=== PATIENT | female | born 1980 | race Caucasian/White ===

== ENCOUNTER 2017-01-11 19:49 | Emergency (ER) | payer OTHER ==
[2017-01-11 19:54] VITALS: TEMP 98.4; BMI 28.1
--- NOTE | 2017-01-11 20:35 | PDOC ---
History of Present Illness <Danii Evans - Last Filed: 01/11/17 23:55> - General History Source: Patient Exam Limitations: No Limitations - History of Present Illness Initial Comments: 01/11/17 21:28 Patient is a 36 yo female with HTN presenting with 2 days of chest pain and associated parasthesias in the fingers of her left hand. Patient claims the pain is episodic occurring every few minutes and lasting for 30 seconds. The pain is sharp, 10/10, and located in the center of her chest with radiation to the back. Pain is not pleurtic and improves with patient laying on her left side. Patient also endorses night sweats, minimal palpitations and shortness of breath with exertion. Patient denies recent travel, immpobilizations, calf pain and hx of DVTs. No family history of heart problems. 01/11/17 21:30 <[address] - Last Filed: 01/12/17 00:04> - General Chief Complaint: Chest Pain Stated Complaint: PCP SENT/CHEST PAIN Time Seen by Provider: 01/11/17 20:34 Past History <Danii Evans - Last Filed: 01/11/17 23:55> - Past Medical History GI Disorders: Yes (COLITIS /HERNIA) HTN: Yes ("countless meds; nothing works") Thyroid Disease: Yes (cushings disease dx 2009) - Surgical History Abdominal Surgery: No - Immunization History Immunization Up to Date: No - Suicide/Smoking/Psychosocial Hx Smoking Status: No Smoking History: Never smoked Have you smoked in the past 12 months: No Number of Cigarettes Smoked Daily: 0 If you are a former smoker, when did you quit?: 2014 Information on smoking cessation initiated: No 'Breaking Loose' booklet given: 03/18/15 Hx Alcohol Use: No Drug/Substance Use Hx: No Substance Use Type: None Hx Substance Use Treatment: No <Moe Lane - Last Filed: 01/12/17 00:04> - Past Medical History Allergies/Adverse Reactions: Allergies Allergy/AdvReac Type Severity Reaction Status Date / Time moxifloxacin HCl AdvReac Severe Difficulty Verified 01/11/17 19:54 [From Avelox] Breathing seafood Allergy Severe Difficulty Uncoded 01/11/17 19:54 Breathing Home Medications: Ambulatory Orders Ibuprofen [Motrin -] 600 mg PO TID PRN #60 tablet 01/11/17 *Physical Exam - Vital Signs Last Vital Signs Temp Pulse Resp BP Pulse Ox 98.4 F 80 18 186/117 100 01/11/17 19:52 01/11/17 21:26 01/11/17 21:26 01/11/17 21:26 01/11/17 21:26 <Danii Evans - Last Filed: 01/11/17 23:55> - Vital Signs Last Vital Signs Temp Pulse Resp BP Pulse Ox 98.4 F 95 H 18 208/136 97 01/11/17 19:52 01/11/17 19:52 01/11/17 19:52 01/11/17 19:52 01/11/17 19:52 <Moe [address] - Last Filed: 01/12/17 00:04> ED Treatment Course - LABORATORY CBC & Chemistry Diagram: 01/11/17 21:00 01/11/17 21:00 - ADDITIONAL ORDERS Additional order review: Laboratory Results 01/11/17 01/11/17 01/11/17 22:20 21:00 21:00 D-Dimer 213 Sodium 140 Potassium 3.6 Chloride 105 Carbon Dioxide 31 Anion Gap 4 L BUN 8 Creatinine 0.8 Creat Clearance w eGFR > 60 Random Glucose 104 Calcium 8.9 Total Bilirubin 0.2 D AST 14 L ALT 19 Alkaline Phosphatase 82 Creatine Kinase 139 Troponin I 0.05 Total Protein 7.6 Albumin 3.5 Urine HCG, Qual Negative 01/11/17 21:00 RBC 3.99 MCV 87.8 MCHC 33.3 RDW 14.3 D MPV 12.7 H Neutrophils % 65.6 Lymphocytes % 24.7 Monocytes % 8.3 Eosinophils % 1.1 Basophils % 0.3 - RADIOLOGY Radiology Studies Ordered: Category Date Time Status CHEST PA & LAT [RAD] Stat Radiology 01/11/17 20:42 Taken - Medications Given in the ED: ED Medications Discontinued Medications Generic Name Dose Route Start Last Admin Trade Name Freq PRN Reason Stop Dose Admin Al Hydroxide/Mg Hydroxide 30 ml 01/11/17 20:52 01/11/17 21:15 Mylanta Oral Suspension - PO 01/11/17 20:53 30 ml ONCE ONE Administration Aspirin 162 mg 01/11/17 20:52 01/11/17 21:15 Asa - PO 01/11/17 20:53 162 mg ONCE ONE Administration Famotidine/Sodium Chloride 50 mls @ 100 mls/hr 01/11/17 20:52 01/11/17 21:15 Pepcid 20 Mg Premixed Ivpb - IVPB 01/11/17 21:21 100 mls/hr ONCE ONE Administration Ketorolac Tromethamine 30 mg 01/11/17 22:54 01/11/17 22:54 Toradol Injection - IVPUSH 01/11/17 22:55 30 mg NOW ONE Administration <Danii Evans - Last Filed: 01/11/17 23:55> - LABORATORY CBC & Chemistry Diagram: 01/11/17 21:00 01/11/17 21:00 <Moe Lane - Last Filed: 01/12/17 00:04> Medical Decision Making - Medical Decision Making 01/11/17 21:37 36 yo female with atypical chest pain that is reproducible on palpation, minimal risk factors for ACS, low suspision for PE presenting in hypertensive urgency. Ddx: HTN Emergency, ACS, PE, Disection, Pneumo. PNA Evaluate with EKG, CXR, basic labs, cardiac enzymes, D-Dimer 01/11/17 22:51 EKG: NSR, Left axis deviation, no S-T elevation, normal intervals Normal chest x-ray CBC WBC 8.2 K/mm3 (4.0-10.0) 01/11/17 21:00 RBC 3.99 M/mm3 (3.60-5.2) 01/11/17 21:00 Hgb 11.6 GM/dL (10.7-15.3) 01/11/17 21:00 Hct 35.0 % (32.4-45.2) 01/11/17 21:00 MCV 87.8 fl (80-96) 01/11/17 21:00 MCH 29.2 pg (25.7-33.7) 01/11/17 21:00 MCHC 33.3 g/dl (32.0-36.0) 01/11/17 21:00 RDW 14.3 % (11.6-15.6) D 01/11/17 21:00 Plt Count 147 K/MM3 (134-434) D 01/11/17 21:00 MPV 12.7 fl (7.5-11.1) H 01/11/17 21:00 Neutrophils % 65.6 % (42.8-82.8) 01/11/17 21:00 Lymphocytes % 24.7 % (8-40) 01/11/17 21:00 Monocytes % 8.3 % (3.8-10.2) 01/11/17 21:00 Eosinophils % 1.1 % (0-4.5) 01/11/17 21:00 Basophils % 0.3 % (0-2.0) 01/11/17 21:00 Platelet Estimate Decreased (NORMAL) 01/11/17 21:00 Platelet Comment No clumping noted 01/11/17 21:00 Platelet Comment Few large plts 01/11/17 21:00 01/11/17 23:35 CMP Sodium 140 mmol/L (136-145) 01/11/17 21:00 Potassium 3.6 mmol/L (3.5-5.1) 01/11/17 21:00 Chloride 105 mmol/L (98-107) 01/11/17 21:00 Carbon Dioxide 31 mmol/L (21-32) 01/11/17 21:00 Anion Gap 4 (8-16) L 01/11/17 21:00 BUN 8 mg/dL (7-18) 01/11/17 21:00 Creatinine 0.8 mg/dL (0.55-1.02) 01/11/17 21:00 Creat Clearance w eGFR > 60 (>60) 01/11/17 21:00 Random Glucose 104 mg/dL (74-106) 01/11/17 21:00 Calcium 8.9 mg/dL (8.5-10.1) 01/11/17 21:00 Total Bilirubin 0.2 mg/dL (0.2-1.0) D 01/11/17 21:00 AST 14 U/L (15-37) L 01/11/17 21:00 ALT 19 U/L (12-78) 01/11/17 21:00 Alkaline Phosphatase 82 U/L (45-117) 01/11/17 21:00 Creatine Kinase 139 IU/L (26-192) 01/11/17 21:00 Troponin I 0.05 ng/ml (0.00-0.05) 01/11/17 21:00 Total Protein 7.6 g/dl (6.4-8.2) 01/11/17 21:00 Albumin 3.5 g/dl (3.4-5.0) 01/11/17 21:00 CBC, CMP Grossly within normal limits <GaryMoe - Last Filed: 01/12/17 00:04> *DC/Admit/Observation/Transfer <Danii Evans - Last Filed: 01/11/17 23:55> - Discharge Dispostion Admit: No <Moe Lane - Last Filed: 01/12/17 00:04> Diagnosis at time of Disposition: Chest wall pain Hypertension Qualifiers: Hypertension type: unspecified Qualified Code(s): I10 - Essential (primary) hypertension - Discharge Dispostion Disposition: HOME Condition at time of disposition: Improved - Prescriptions Prescriptions: Ibuprofen [Motrin -] 600 mg PO TID PRN #60 tablet PRN Reason: Pain - Referrals Referrals: Radu Mcdonnell MD [Primary Care Provider] - - Patient Instructions Printed Discharge Instructions: DI for Atypical Chest Pain Additional Instructions: You should take protonix 40 mg every day. Follow up with gastroenterology. You should also follow up with Dr. mcdonnell within next 3 days to have your blood pressure checked. All labs were normal here today. Return for any problem or concerns. You can take Motrin 600 mg every 8 hours as needed for pain.
[2017-01-11] MEDS ORDERED: FAMOTIDINE 20 MG/50 ML IVPB 50 ML IVPB ONE ×2 (20:52→21:09)
[2017-01-11] MEDS ORDERED: ASPIRIN 81 MG CHEWABLE TABLETS PO ONE (20:52)
[2017-01-11] MEDS ORDERED: MAG HYDROX/AL HYDROX/SIMETH 30 ML UNIT-DOSE CUP PO ONE (20:52)
--- NOTE | 2017-01-11 20:52 | PDOC ---
Attending Attestation - [facility] HPI: 01/11/17 21:22 The patient is a 36 year old female, with a significant past medical history of hypertension (treated with diet, exercise, and garlic pills), graham's disease , anxiety, hiatal hernia, and colitis, who presents to the emergency department with midsternal chest pain for 3 days. She states the onset of her chest pain occurred Wednesday morning and was associated with left arm numbness. She states the numbness resolved after just a few minutes, however, she states she has been experiencing intermittent chest pain since. She states while experiencing the midsternal pain, the pain is exacerbated with deep inspiration. She also reports tenderness to her midsternal region. She denies pain with deep inspiration when the pain is not present. She reports increased shortness of breath with walking up stairs. She denies lower extremity swelling or pain. She denies recent travels. She reports recently losing 15lbs s/p changing the treatment for her hypertension. She reports a normal stress test 2 years. She denies headache and dizziness. She denies fever, chills, nausea, vomit, diarrhea and constipation. She denies dysuria, frequency, urgency and hematuria. Allergies: NKDA Social history: Pt denies tobacco use. Family History: CVA (mother) PCP - Dr. Radu Mcdonnell - Physicial Exam PE: 01/11/17 21:24 GENERAL: Awake, alert, and fully oriented, in no acute distress HEAD: No signs of trauma EYES: PERRLA, EOMI, sclera anicteric, conjunctiva clear ENT: Auricles normal inspection, hearing grossly normal, nares patent, oropharynx clear without exudates. Moist mucosa NECK: Normal ROM, supple, no lymphadenopathy, JVD, or masses LUNGS: Breath sounds equal, clear to auscultation bilaterally. No wheezes, and no crackles HEART: Regular rate and rhythm, normal S1 and S2, no murmurs, rubs or gallops CHEST: (+) reproducible tenderness to midsternum. ABDOMEN: Soft, nontender, normoactive bowel sounds. No guarding, no rebound. No masses EXTREMITIES: Normal range of motion, no edema. No clubbing or cyanosis. No cords , erythema, or tenderness NEUROLOGICAL: Cranial nerves II through XII grossly intact. Normal speech, normal gait SKIN: Warm, Dry, normal turgor, no rashes or lesions noted. - Medical Decision Making 01/11/17 23:50 Dr. Mcdonnell was paged via phone answering service at this time requesting a call back for doctor to doctor consult. 01/11/17 23:55 Documentation prepared by Beverly Gregory, acting as medical apparatus model maker for Danii Evans MD, <Beverly Gregory - Last Filed: 01/11/17 23:51> - Resident Resident Name: Moe Lane - ED Attending Attestation I have performed the following: I have examined & evaluated the patient, The case was reviewed & discussed with the resident, I agree w/resident's findings & plan, Exceptions are as noted - HPI HPI: 01/11/17 20:48 36 yo F with h/o HTN, recenlty dc'd on all meds, using diet exercise and garlic pills, 15 lb weight loss, here wtih c/o chest pain. started 3 days ago. described as substernal rad to back and arm. did have sob when pain is symptomatic. pain is intermittent. normally not plueritic. no h/o pe or dvt. no leg swelling. no recent travel. family h/o CVA ( mother 40's) no CAD. on exam awake alert lungs clear bilaterally heart rrr no mrg abd soft nt nd leg no edema. symmetric pulses. chest wall ttp. plan differential diagnosis : chest wall pain, gerd, refuls, pe angina ( although unlikely given pt age, recent stress test negative. 2 yrs ago). plan bp control, reasses. pain control. ekg labs cxr. - Physicial Exam PE: 01/11/17 23:53 01/11/17 23:55 - Medical Decision Making 01/11/17 23:55 pt labs unremarkable. d dimer negative. has reproducible pain on exam. ekg unremarkable. bp improved. will have follow up wtih dr mcdonnell in 48 hours. recommend motrin for pain control. <Danii Evans - Last Filed: 01/11/17 23:55>
[2017-01-11] MEDS ORDERED: ASPIRIN 81 MG CHEWABLE TABLETS ONE (21:08)
[2017-01-11 21:09] LABS: BASOPHIL 0.3 % (0-2.0); EOSINOPHIL 1.1 % (0-4.5); MCH 29.2 pg (25.7-33.7); MCHC 33.3 g/dl (32.0-36.0); MEAN CELL VOLUME 87.8 fl (80-96); MEAN PLT VOLUME 12.7 fl (7.5-11.1); NEUTROPHILS 65.6 % (42.8-82.8); RDW 14.3 % (11.6-15.6); WHITE BLOOD COUNT 8.2 K/mm3 (4.0-10.0)
[2017-01-11] MEDS ORDERED: MAG HYDROX/AL HYDROX/SIMETH 30 ML UNIT-DOSE CUP ONE (21:09)
[2017-01-11 21:36] LABS: ALBUMIN 3.5 g/dl (3.4-5.0); ANION GAP 4 (8-16); BILIRUBIN,TOTAL 0.2 mg/dL (0.2-1.0); CALCIUM 8.9 mg/dL (8.5-10.1); CO2 31 mmol/L (21-32); CREATININE 0.8 mg/dL (0.55-1.02); GLUCOSE,RANDOM 104 mg/dL (74-106); SGOT/AST 14 U/L (15-37); SGPT/ALT 19 U/L (12-78); TOT PROT 7.6 g/dl (6.4-8.2)
[2017-01-11 21:38] LABS: ALK PHOS 82 U/L (45-117); CPK 139 IU/L (26-192); TROPONIN I 0.05 ng/ml (0.00-0.05)
[2017-01-11 22:10] LABS: PLATELET COMMENT2 FEW LARGE PLTS; PLATELET COUNT 147 K/MM3 (134-434); PLATELET ESTIMATE DECREASED (NORMAL)
[2017-01-11] MEDS ORDERED: KETOROLAC TROMETHAMINE 30 MG/1 ML VIAL ONE (22:46)
[2017-01-11] MEDS ORDERED: KETOROLAC TROMETHAMINE 30 MG/1 ML VIAL IVPUSH ONE (22:54)
[2017-01-12 00:28] VITALS: BP 159/94; PULSE 69
--- NOTE | 2017-01-13 11:30 | EKG ---
Test Reason : Blood Pressure : / mmHG Vent. Rate : 086 BPM Atrial Rate : 086 BPM P-R Int : 176 ms QRS Dur : 090 ms QT Int : 380 ms P-R-T Axes : 044 -63 091 degrees QTc Int : 454 ms NORMAL SINUS RHYTHM POSSIBLE LEFT ATRIAL ENLARGEMENT LEFT AXIS DEVIATION ABNORMAL QRS-T ANGLE, CONSIDER PRIMARY T WAVE ABNORMALITY ABNORMAL ECG WHEN COMPARED WITH ECG OF 31-JUL-2015 13:07, CRITERIA FOR ANTEROSEPTAL INFARCT ARE NO LONGER PRESENT Confirmed by JED WILD, ZOEY ([id number]) on 01/13/2017 11:29:46 AM Referred By: Confirmed By:ZOEY ADKINS MD
== END 2017-01-12 00:30 | disposition home or self-care (01) ==
LOC: JER 19:49
PROC: 3E033GC Introduction of Other Therapeutic Substance into Peripheral Vein, Percutaneous Approach (ICD-10-PCS; principal; 2017-01-11)
PROC: 3E0333Z Introduction of Anti-inflammatory into Peripheral Vein, Percutaneous Approach (ICD-10-PCS; 2017-01-11)
DX: R07.89 Other chest pain (principal); I10 Essential (primary) hypertension
CPT/HCPCS: 36415; 71020-TC; 80053; 84484; 84703; 85025; 85379; 93005; 93010; 99283-25

== ENCOUNTER 2019-05-05 18:05 | Emergency (ER) | payer OTHER ==
[2019-05-05 18:10] VITALS: TEMP 97.6; BMI 29.2
--- NOTE | 2019-05-05 18:10 | PDOC ---
Rapid Medical Evaluation Time Seen by Provider: 05/05/19 18:07 Medical Evaluation: Allergies Allergy/AdvReac Type Severity Reaction Status Date / Time moxifloxacin HCl AdvReac Severe Difficulty Verified 01/11/17 19:54 [From Avelox] Breathing seafood Allergy Severe Difficulty Uncoded 01/11/17 19:54 Breathing 05/05/19 18:07 HPI: Sent from occupational health at [facility] with questionable pneumonia Finished a course of zithromax and now on cefuroxime PE: CTA ORDERS:CXR Discharge Disposition - Diagnosis Viral URI with cough - Referrals - Patient Instructions - Post Discharge Activity
--- NOTE | 2019-05-05 20:00 | PDOC ---
History of Present Illness - General Chief Complaint: Cold Symptoms Stated Complaint: SENT BY PCP Time Seen by Provider: 05/05/19 18:07 History Source: Patient Exam Limitations: No Limitations - History of Present Illness Initial Comments: 39F PMH uncontrolled HTN, hyperaldosteronism sent in by [facility] due to abnormality heard on pulmonary exam by examiner. Pt has had a dry cough for the past 2 weeks; given z-pack by urgent care w/o improvement, saw PCP given Cefuroxime on 04/28/19. No improvement since. Endorses three days of generalized malaise and myalgias. Endorses 3 days of b/l CVA region pain. Denies f/c, cp/sob, n/v/abd pain, dysuria. Pt has been on disability for anxiety , was being examined for return to work. 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 Did not get flu shot, has upspecified bad rxn. uncontrolled HTN - baseline SBP 180s per pt, has very resistant HTN, has not responded to multiple medications, now not on any anti-HTNs, has seen multiple specialists Allergy to Moxifloxacin PCP Dr. Garza Denies tobacco, etoh, drug Past History - Past Medical History Allergies/Adverse Reactions: Allergies Allergy/AdvReac Type Severity Reaction Status Date / Time moxifloxacin HCl AdvReac Severe Difficulty Verified 05/05/19 18:11 [From Avelox] Breathing seafood Allergy Severe Difficulty Uncoded 05/05/19 18:11 Breathing Home Medications: Ambulatory Orders Ibuprofen [Motrin -] 600 mg PO TID PRN #60 tablet 01/11/17 COPD: No GI Disorders: Yes (COLITIS /HERNIA) HTN: Yes Thyroid Disease: Yes (cushings disease dx 2009) - Surgical History Abdominal Surgery: No - Immunization History Immunization Up to Date: No - Psycho Social/Smoking Cessation Hx Smoking Status: No Smoking History: Never smoked Have you smoked in the past 12 months: No Number of Cigarettes Smoked Daily: 0 If you are a former smoker, when did you quit?: 2014 'Breaking Loose' booklet given: 03/18/15 Hx Alcohol Use: No Drug/Substance Use Hx: No Substance Use Type: None Hx Substance Use Treatment: No Review of Systems - Review of Systems Able to Perform ROS?: Yes Comments:: CONSTITUTIONAL: Denies F / C HEENT: Endorses postnasal drip. Denies sore throat, rhinorrhea RESP: Endorses cough. Denies SOB CARD: Denies chest pain, palpitations GI: Denies N / V / D, abdominal pain, inability to tolerate PO : Denies dysuria, frequency SKIN: Denies rashes NEURO: Denies numbness, tingling, weakness MSK: Endorses b/l CVA region pain Is the patient limited Romanian proficient: No *Physical Exam - Vital Signs Last Vital Signs Temp Pulse Resp BP Pulse Ox 97.6 F 98 H 18 194/130 H 100 05/05/19 18:06 05/05/19 18:06 05/05/19 18:06 05/05/19 18:06 05/05/19 18:06 - Physical Exam VITALS: AF, Hypertensive GEN: Well appearing, NAD, comfortable. AAOx3. HEENT: NC/AT. No facial asymmetry. Moist mucous membranes. Normal voice. Supple neck w/ FROM. CV: S1/S2, RRR, no m/r/g LUNG: CTAB, no wheezes, crackles, rales, rhonchi. GI: Soft, ndnt, +BS, no guarding, no rebound. No masses. EXTREMITIES: No obvious deformities of all extremities. SKIN: Warm, dry, no rashes appreciated. PSYCH: Normal mood and affect. NEURO: Moving all extremities well. BACK: No step offs, no midline TTP. Exquisitely tenderness to light touch on the right paraspinal region localized to a 2x2 cm patch, no overlying rash, and no TTP of the flanks or dermatome. Medical Decision Making - Medical Decision Making 05/05/19 19:39 39F PMH uncontrolled HTN, hyperaldosteronism sent by [facility] due to abnormality heard on pulmonary exam by examiner in setting of 2 weeks of cough. +malaise and myalgias. Hypertensive to the 190s but pt states baseline not too far from that. Likely MSK paraspinal pain given the extremely localized area affected w/o overlying rashes or dermatomal/flank distribution. 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 Your chest x-ray did not show any acute pathology. Follow up with your primary care doctor in the next 2-3 days. Steps should be worked out to try to control your blood pressure. Return to the nearest Emergency Department if you experience: - chest pain, shortness of breath - fainting, changes in vision, changes in behavior - high fever - anything that concerns you - Post Discharge Activity
--- NOTE | 2019-05-05 20:02 | PDOC ---
Documentation entered by David Randhawa SCRIBE, acting as scribe for Mario So MD. Mario So MD: This documentation has been prepared by the Edis morgan Daniel, SCRIBE, under my direction and personally reviewed by me in its entirety. I confirm that the documentation accurately reflects all work, treatment, procedures, and medical decision making performed by me. Attending Attestation - Resident Resident Name: Radu Carpenter - ED Attending Attestation I have performed the following: I have examined & evaluated the patient, The case was reviewed & discussed with the resident, I agree w/resident's findings & plan, Exceptions are as noted - HPI HPI: 05/05/19 19:31 The patient is a 39 year old female with a past medical history of hyperaldosteronism and HTN here today for evaluation of cough. The patient reports that she has had a non productive cough for the past few days and initially presented to an urgent care who put her on erythromycin which did not help. She then saw her PCP who put her on cefuroxime. She states that she then presented to [facility] occupational health who told her to go an ER due to hearing something on her lung exam. She notes associated mild nausea and malaise for the past 3 days. She also reports bilateral flank pain for the past few days. Patient denies headache, lightheadedness. Denies fever, chills. Denies chest pain, shortness of breath. Denies vomiting, diarrhea, abdominal pain. Allergies: moxifloxacin HCL, seafood PCP: Radu Garza - Physicial Exam PE: 05/05/19 20:01 GENERAL: The patient is awake, alert, and fully oriented, Nontoxic - in no acute distress. HEAD: Normocephalic, atraumatic. EYES: extraocular movements intact, sclera anicteric, conjunctiva clear. ENT: Normal voice, Moist mucous membranes. NECK: Normal range of motion, supple LUNGS: Breath sounds equal, clear to auscultation bilaterally. No wheezes, no rhonchi, no rales. HEART: Regular rate and rhythm, normal S1 and S2 without murmur, rub or gallop. ABDOMEN: Soft, nontender, No guarding, no rebound. No CVA tenderness EXTREMITIES: Normal range of motion, no edema. BACK: moderate tenderness on mid R back in the paraspinal musculatur withou signs of induratin/erythema/ecchymosis/fluctuance, rashes NEUROLOGICAL: No facial assymetry, Normal speech, PSYCH: Normal mood, normal affect. SKIN: Warm, Dry, normal turgor, - Medical Decision Making 05/05/19 19:26 39y F hx of htn secondary to [facility] with nonproductiv cough, was started on azithromycin by urgent care, started on cefuroxime by PMD withou significiant improvement. Pt endorses general malaise, myalgia. denies fever/chills, cp, sob, elnnon, leg sweling. On exam pt well appearing in no disterss. pulm exam clear, pt does have moderate paraspinal tendernes on the lumbar paraspinal region withou signs of rash/fluctuance/inuration - suspect may be mucular in nature. p declines typlenol/motrin. pt also has extremely high bp - state that i usual for her due to her hyperaldosteronism - she has been on meds before, but is off it curently as sh eis using holistic modalities. discussed wit hthe patient importance of managing her bp - states she understands and she has been dealing wth his for 10 + years. will have pt fu with PMD
[2019-05-05 20:25] VITALS: BP 185/107; PULSE 90
== END 2019-05-05 20:42 | disposition home or self-care (01) ==
LOC: JER 18:05
DX: J06.9 Acute upper respiratory infection, unspecified (principal); I15.2 Hypertension secondary to endocrine disorders; E26.89 Other hyperaldosteronism; Z91.013 Allergy to seafood; Z88.8 Allergy status to other drugs, medicaments and biological substances
CPT/HCPCS: 71046-TC-FY; 99283-25

== ENCOUNTER 2021-11-25 20:44 | Inpatient (IN) | payer OTHER ==
[2021-11-25 22:13] VITALS: BMI 27.4
[2021-11-25] MEDS ORDERED: METOCLOPRAMIDE HCL INJECTION 10 MG/2 ML VIAL IVPB ONE (23:12)
[2021-11-25] MEDS ORDERED: ACETAMINOPHEN 1000 MG/100 ML BAG IVPB ONE (23:12)
[2021-11-25] MEDS ORDERED: NICARDIPINE 25 MG in DEXTROSE 5%-WATER - 240 ML IVPB SCH (23:15)
[2021-11-25] MEDS ORDERED: METOCLOPRAMIDE HCL INJECTION 10 MG/2 ML VIAL ONE (23:20)
[2021-11-25] MEDS ORDERED: ACETAMINOPHEN INJECTION 100 ML IVPB ONE (23:21)
[2021-11-25 23:39] LABS: BASO % 0.7 % (0-2.0); EOS % 0.8 % (0-4.5); HEMATOCRIT 36.8 % (32.4-45.2); LYMPH % 22.7 % (8-40); MCH 28.2 pg (25.7-33.7); MCHC 32.6 g/dl (32.0-36.0); MEAN CELL VOLUME 86.4 fl (80-96); MEAN PLT VOLUME 11.6 fl (7.5-11.1); MONO % 7.2 % (3.8-10.2); NEUT % 68.6 % (42.8-82.8); PLATELET COUNT 140 10^3/uL (134-434); RBC 4.26 M/mm3 (3.60-5.2); WHITE BLOOD COUNT 8.7 K/mm3 (4.0-10.0)
[2021-11-25 23:59] LABS: CHLORIDE 106 mmol/L (98-107); SODIUM 141 mmol/L (136-145)
[2021-11-26 00:01] LABS: ALBUMIN 3.8 g/dl (3.4-5.0); ANION GAP 7 MMOL/L (8-16); BLOOD UREA NITROGEN 14.1 mg/dL (7-18); CALCIUM 9.1 mg/dL (8.5-10.1); CO2 28 mmol/L (21-32); GLUCOSE,RANDOM 100 mg/dL (74-106)
[2021-11-26 00:04] LABS: SGPT/ALT 21 U/L (13-61)
[2021-11-26 00:05] LABS: SGOT/AST 16 U/L (15-37)
[2021-11-26 00:06] LABS: BILIRUBIN,TOTAL 0.3 mg/dL (0.2-1)
[2021-11-26 00:07] LABS: ALK PHOS 81 U/L (45-117)
[2021-11-26] MEDS ORDERED: ASPIRIN 81 MG CHEWABLE TABLETS PO ONE (00:44)
[2021-11-26] MEDS ORDERED: ASPIRIN 81 MG CHEWABLE TABLETS ONE ×2 (00:49→09:24)
[2021-11-26] MEDS ORDERED: HEPARIN NA (PORCINE) 5,000 UNITS/ML 1ML VIAL IVPUSH ONE (02:52)
[2021-11-26] MEDS ORDERED: HEPARIN NA (PORCINE) 5,000 UNITS/ML 1ML VIAL ONE (03:58)
[2021-11-26] MEDS ORDERED: HEPARIN INFUSION - 25,000 UNITS/500 ML INFUS.BAG IVPB ONE (03:59)
[2021-11-26] MEDS ORDERED: HEPARIN NA (PORCINE) 5,000 UNITS/ML 1ML VIAL IVPUSH PRN ×2 (04:15)
[2021-11-26] MEDS: HEPARIN INFUSION - 25,000 UNITS/500 ML INFUS.BAG IVPB SCH ×2 (04:33→05:09)
[2021-11-26 04:58] LABS: INR 1.25 (0.83-1.09)
[2021-11-26] MEDS ORDERED: POTASSIUM CHLORIDE ORAL LIQUID 20 MEQ/15 ML PO ONE (05:45)
[2021-11-26 06:49] LABS: ACTIVATED PTT > 400.0 SECONDS (25.2-36.5)
[2021-11-26] MEDS: KCL 10 MEQ IVPB 10 MEQ/100 ML INFUS.BAG IVPB SCH ×3 (07:00→08:59)
[2021-11-26] MEDS ORDERED: KCL 10 MEQ IVPB 30 MEQ/300 ML INFUS.BAG IVPB ONE (07:21)
[2021-11-26] MEDS ORDERED: POTASSIUM CHLORIDE TABS 20 MEQ TABLET.ER (FP) PO ONE (09:24)
[2021-11-26] MEDS ORDERED: PANTOPRAZOLE 20 MG TABLET PO ONE (09:24)
[2021-11-26] MEDS: ASPIRIN 81 MG CHEWABLE TABLETS PO SCH (09:31)
[2021-11-26] MEDS: PANTOPRAZOLE 20 MG TABLET PO SCH (09:31)
[2021-11-26] MEDS ORDERED: NIFEdipine 10 MG CAPSULE (FP) PO SCH (09:45)
[2021-11-26] MEDS ORDERED: MUPIROCIN 2% TOPICAL OINTMENT FOR DECOLONIZATION NS SCH (10:00)
[2021-11-26] MEDS ORDERED: NIFEdipine E.R. 30 MG TABLET PO SCH (10:15)
[2021-11-26] MEDS ORDERED: NIFEdipine E.R 60 MG TABLET ONE (10:36)
[2021-11-26] MEDS ORDERED: NIFEdipine E.R 60 MG TABLET PO SCH (11:13)
[2021-11-26 11:45] LABS: BASO % 0.3 % (0-2.0); EOS % 0.7 % (0-4.5); HEMATOCRIT 34.9 % (32.4-45.2); HEMOGLOBIN 11.7 GM/dL (10.7-15.3); LYMPH % 17.8 % (8-40); MCH 28.5 pg (25.7-33.7); MCHC 33.6 g/dl (32.0-36.0); MEAN CELL VOLUME 84.9 fl (80-96); MEAN PLT VOLUME 12.2 fl (7.5-11.1); MONO % 7.4 % (3.8-10.2); NEUT % 73.8 % (42.8-82.8); PLATELET COUNT 132 10^3/uL (134-434); RBC 4.11 M/mm3 (3.60-5.2); RDW 15.7 % (11.6-15.6); WHITE BLOOD COUNT 7.9 K/mm3 (4.0-10.0)
[2021-11-26 11:59] LABS: CHLORIDE 108 mmol/L (98-107); SODIUM 142 mmol/L (136-145)
[2021-11-26 12:01] LABS: CALCIUM 8.6 mg/dL (8.5-10.1)
[2021-11-26 12:02] LABS: ALBUMIN 3.4 g/dl (3.4-5.0); ANION GAP 7 MMOL/L (8-16); BLOOD UREA NITROGEN 7.5 mg/dL (7-18); CO2 27 mmol/L (21-32); GLUCOSE,RANDOM 98 mg/dL (74-106); MAGNESIUM 2.1 mg/dL (1.8-2.4)
[2021-11-26 12:05] LABS: CREATININE 0.8 mg/dL (0.55-1.3); PHOSPHOROUS 2.6 mg/dL (2.5-4.9); SGOT/AST 15 U/L (15-37); SGPT/ALT 19 U/L (13-61)
[2021-11-26 12:07] LABS: BILIRUBIN,TOTAL 0.3 mg/dL (0.2-1); TOT PROT 7.4 g/dl (6.4-8.2)
[2021-11-26 12:08] LABS: ALK PHOS 72 U/L (45-117)
[2021-11-26 12:24] LABS: N-TERMINAL BNP 585.7 pg/ml (5-125)
[2021-11-26] MEDS ORDERED: hydrALAZINE HCL 20 MG/ML VIAL IVPUSH PRN (20:25)
[2021-11-26] MEDS ORDERED: CHLORHEXIDINE GLUCONATE 4% CLEANSER FOR DECOLONIZATION TP SCH (22:00)
[2021-11-26] MEDS ORDERED: hydrALAZINE HCL 20 MG/ML VIAL IVPUSH ONE (22:15)
[2021-11-26] MEDS ORDERED: NIFEdipine E.R 60 MG TABLET PO ONE (22:23)
[2021-11-26] MEDS ORDERED: ALPRAZolam 0.25 MG TABLET PO ONE (22:25)
[2021-11-27] MEDS ORDERED: SPIRONOLACTONE 25 MG TABLET PO SCH (02:07)
[2021-11-27 06:33] LABS: HEMATOCRIT 37.5 % (32.4-45.2); HEMOGLOBIN 12.4 GM/dL (10.7-15.3); MCH 28.4 pg (25.7-33.7); MCHC 33.2 g/dl (32.0-36.0); MEAN CELL VOLUME 85.5 fl (80-96); MEAN PLT VOLUME 12.6 fl (7.5-11.1); PLATELET COUNT 144 10^3/uL (134-434); RBC 4.38 M/mm3 (3.60-5.2); RDW 16.2 % (11.6-15.6); WHITE BLOOD COUNT 8.1 K/mm3 (4.0-10.0)
[2021-11-27 06:52] LABS: CALCIUM 8.9 mg/dL (8.5-10.1)
[2021-11-27 06:53] LABS: BLOOD UREA NITROGEN 9.1 mg/dL (7-18); MAGNESIUM 2.2 mg/dL (1.8-2.4)
[2021-11-27 06:56] LABS: CREATININE 0.7 mg/dL (0.55-1.3); PHOSPHOROUS 3.3 mg/dL (2.5-4.9)
[2021-11-27] MEDS ORDERED: KCL 10 MEQ IVPB 10 MEQ/100 ML INFUS.BAG IVPB SCH (08:30)
[2021-11-27] MEDS: ACETAMINOPHEN 325 MG TABLET (FP) PO PRN (09:05)
[2021-11-27] MEDS: ASPIRIN 81 MG CHEWABLE TABLETS PO SCH (09:52)
[2021-11-27] MEDS: NIFEdipine E.R 60 MG TABLET PO SCH ×2 (09:52→21:24)
[2021-11-27] MEDS: POTASSIUM CHLORIDE ORAL LIQUID 20 MEQ/15 ML PO SCH ×2 (09:52→21:24)
[2021-11-27] MEDS: PANTOPRAZOLE 20 MG TABLET PO SCH (09:53)
[2021-11-27] MEDS ORDERED: NIFEdipine E.R 60 MG TABLET PO SCH (10:00)
[2021-11-27] MEDS ORDERED: EPLERENONE 25 MG TABLET PO SCH (11:30)
[2021-11-27] MEDS: HEPARIN INFUSION - 25,000 UNITS/500 ML INFUS.BAG IVPB SCH (12:50)
[2021-11-27 16:48] LABS: EPI CELLS >36 /uL (0-25.1); HYALINE CASTS 7 /uL (0-3.1); PH,URINE 6.5 (5.0-8.0); URINE APPEARANCE CLOUDY; URINE BACTERIA 451 /uL (0-1359); URINE BILIRUBIN NEGATIVE (NEGATIVE); URINE COLOR YELLOW; URINE GLUCOSE (UA) NEGATIVE (NEGATIVE); URINE KETONE TRACE (NEGATIVE); URINE LEUK ESTERASE NEGATIVE (NEGATIVE); URINE NITRITE NEGATIVE (NEGATIVE); URINE PROTEIN 1+ (NEGATIVE); URINE RBC 24 /uL (0-23.9); URINE UROBILINOGEN 0.2 mg/dL (0.2-1.0); URINE WBC 8 /uL (0-25.8)
[2021-11-27] MEDS: EPLERENONE 25 MG TABLET PO SCH (21:23)
[2021-11-27] MEDS: ALPRAZolam 0.25 MG TABLET PO PRN (21:25)
[2021-11-27] MEDS ORDERED: DEXAMETHASONE 0.5 MG TABLET PO ONE (22:00)
[2021-11-28 08:00] LABS: BASO % 0.4 % (0-2.0); EOS % 0.3 % (0-4.5); LYMPH % 12.4 % (8-40); MCH 28.2 pg (25.7-33.7); MCHC 32.4 g/dl (32.0-36.0); MEAN PLT VOLUME 12.5 fl (7.5-11.1); MONO % 4.9 % (3.8-10.2); PLATELET COUNT 145 10^3/uL (134-434); RDW 15.9 % (11.6-15.6); WHITE BLOOD COUNT 8.4 K/mm3 (4.0-10.0)
[2021-11-28 08:18] LABS: CALCIUM 9.6 mg/dL (8.5-10.1)
[2021-11-28 08:19] LABS: ALBUMIN 3.8 g/dl (3.4-5.0)
[2021-11-28 08:22] LABS: PHOSPHOROUS 3.3 mg/dL (2.5-4.9)
[2021-11-28 08:23] LABS: BILIRUBIN,TOTAL 0.5 mg/dL (0.2-1); TOT PROT 8.1 g/dl (6.4-8.2)
[2021-11-28] MEDS: PANTOPRAZOLE 20 MG TABLET PO SCH (09:40)
[2021-11-28] MEDS: ASPIRIN 81 MG CHEWABLE TABLETS PO SCH (09:40)
[2021-11-28] MEDS: NIFEdipine E.R 60 MG TABLET PO SCH ×2 (09:41→21:49)
[2021-11-28] MEDS: ACETAMINOPHEN 325 MG TABLET (FP) PO PRN (09:41)
[2021-11-28] MEDS: EPLERENONE 25 MG TABLET PO SCH ×2 (09:42→21:49)
[2021-11-28] MEDS: ALPRAZolam 0.25 MG TABLET PO PRN (21:52)
[2021-11-29] MEDS ORDERED: HEPARIN NA (PORCINE) 5,000 UNITS/ML 1ML VIAL IVPUSH PRN ×2 (08:02)
[2021-11-29 08:39] LABS: BASO % 1.4 % (0-2.0); EOS % 1.6 % (0-4.5); HEMATOCRIT 39.8 % (32.4-45.2); HEMOGLOBIN 13.1 GM/dL (10.7-15.3); LYMPH % 26.7 % (8-40); MCH 28.5 pg (25.7-33.7); MCHC 32.9 g/dl (32.0-36.0); MEAN CELL VOLUME 86.6 fl (80-96); MEAN PLT VOLUME 13.1 fl (7.5-11.1); MONO % 5.5 % (3.8-10.2); NEUT % 64.8 % (42.8-82.8); PLATELET COUNT 163 10^3/uL (134-434); RDW 15.8 % (11.6-15.6); WHITE BLOOD COUNT 8.6 K/mm3 (4.0-10.0)
[2021-11-29 08:43] LABS: BLOOD UREA NITROGEN 15.2 mg/dL (7-18); CALCIUM 8.9 mg/dL (8.5-10.1); MAGNESIUM 2.1 mg/dL (1.8-2.4)
[2021-11-29 08:46] LABS: CREATININE 0.9 mg/dL (0.55-1.3); PHOSPHOROUS 3.4 mg/dL (2.5-4.9)
[2021-11-29 08:48] LABS: BILIRUBIN,TOTAL 0.3 mg/dL (0.2-1); TOT PROT 8.4 g/dl (6.4-8.2)
[2021-11-29] MEDS: NIFEdipine E.R 60 MG TABLET PO SCH ×2 (09:05→21:25)
[2021-11-29] MEDS: PANTOPRAZOLE 20 MG TABLET PO SCH (09:06)
[2021-11-29] MEDS: EPLERENONE 25 MG TABLET PO SCH ×2 (09:06→21:25)
[2021-11-29] MEDS: ASPIRIN 81 MG CHEWABLE TABLETS PO SCH (09:07)
[2021-11-29] MEDS: ALPRAZolam 0.25 MG TABLET PO PRN (11:41)
[2021-11-29] MEDS ORDERED: LISINOPRIL 10 MG TABLET PO SCH (11:45)
[2021-11-30 06:57] LABS: BASO % 1.1 % (0-2.0); EOS % 2.1 % (0-4.5); HEMATOCRIT 38.8 % (32.4-45.2); HEMOGLOBIN 12.7 GM/dL (10.7-15.3); LYMPH % 20.6 % (8-40); MCH 28.2 pg (25.7-33.7); MCHC 32.7 g/dl (32.0-36.0); MEAN CELL VOLUME 86.3 fl (80-96); MEAN PLT VOLUME 12.1 fl (7.5-11.1); NEUT % 69.2 % (42.8-82.8); PLATELET COUNT 132 10^3/uL (134-434); RBC 4.49 M/mm3 (3.60-5.2); RDW 16.1 % (11.6-15.6); WHITE BLOOD COUNT 8.5 K/mm3 (4.0-10.0)
[2021-11-30 07:31] LABS: CALCIUM 9.2 mg/dL (8.5-10.1)
[2021-11-30 07:32] LABS: ALBUMIN 3.6 g/dl (3.4-5.0); BLOOD UREA NITROGEN 16.6 mg/dL (7-18); MAGNESIUM 2.2 mg/dL (1.8-2.4)
[2021-11-30 07:35] LABS: CREATININE 0.8 mg/dL (0.55-1.3); PHOSPHOROUS 3.6 mg/dL (2.5-4.9)
[2021-11-30 07:36] LABS: BILIRUBIN,TOTAL 0.2 mg/dL (0.2-1); TOT PROT 7.6 g/dl (6.4-8.2)
[2021-11-30] MEDS: PANTOPRAZOLE 20 MG TABLET PO SCH (09:01)
[2021-11-30] MEDS: ASPIRIN 81 MG CHEWABLE TABLETS PO SCH (09:02)
[2021-11-30] MEDS: NIFEdipine E.R 60 MG TABLET PO SCH ×2 (09:02→21:31)
[2021-11-30] MEDS: LISINOPRIL 20 MG TABLET PO SCH (09:02)
[2021-11-30] MEDS: EPLERENONE 25 MG TABLET PO SCH ×2 (09:02→21:31)
[2021-11-30 10:06] LABS: HEMATOCRIT 40.4 % (32.4-45.2); HEMOGLOBIN 13.1 GM/dL (10.7-15.3); MCH 27.9 pg (25.7-33.7); MCHC 32.4 g/dl (32.0-36.0); MEAN CELL VOLUME 86.3 fl (80-96); MEAN PLT VOLUME 12.9 fl (7.5-11.1); PLATELET COUNT 178 10^3/uL (134-434); RBC 4.68 M/mm3 (3.60-5.2); WHITE BLOOD COUNT 8.7 K/mm3 (4.0-10.0)
[2021-11-30] MEDS: ALPRAZolam 0.25 MG TABLET PO PRN (21:44)
[2021-12-01] MEDS: HEPARIN INFUSION - 25,000 UNITS/500 ML INFUS.BAG IVPB SCH (08:12)
[2021-12-01 08:15] LABS: BASO % 0.9 % (0-2.0); EOS % 1.7 % (0-4.5); HEMATOCRIT 39.3 % (32.4-45.2); LYMPH % 25.6 % (8-40); MCH 28.4 pg (25.7-33.7); MCHC 33.1 g/dl (32.0-36.0); MEAN CELL VOLUME 85.6 fl (80-96); MEAN PLT VOLUME 12.3 fl (7.5-11.1); MONO % 5.3 % (3.8-10.2); NEUT % 66.5 % (42.8-82.8); PLATELET COUNT 148 10^3/uL (134-434); RBC 4.59 M/mm3 (3.60-5.2); RDW 15.9 % (11.6-15.6); WHITE BLOOD COUNT 7.7 K/mm3 (4.0-10.0)
[2021-12-01 08:43] LABS: BLOOD UREA NITROGEN 14.9 mg/dL (7-18)
[2021-12-01 08:45] LABS: ALBUMIN 3.8 g/dl (3.4-5.0); MAGNESIUM 2.2 mg/dL (1.8-2.4)
[2021-12-01 08:46] LABS: CALCIUM 9.4 mg/dL (8.5-10.1)
[2021-12-01 08:47] LABS: CREATININE 0.8 mg/dL (0.55-1.3); PHOSPHOROUS 3.5 mg/dL (2.5-4.9)
[2021-12-01 08:50] LABS: BILIRUBIN,TOTAL 0.3 mg/dL (0.2-1)
[2021-12-01] MEDS: PANTOPRAZOLE 20 MG TABLET PO SCH (09:54)
[2021-12-01] MEDS: NIFEdipine E.R 60 MG TABLET PO SCH ×2 (09:54→21:22)
[2021-12-01] MEDS: ASPIRIN 81 MG CHEWABLE TABLETS PO SCH (09:54)
[2021-12-01] MEDS: LISINOPRIL 20 MG TABLET PO SCH (09:54)
[2021-12-01] MEDS: EPLERENONE 25 MG TABLET PO SCH ×2 (09:55→21:23)
[2021-12-01 10:04] LABS: HEMATOCRIT 41.5 % (32.4-45.2); HEMOGLOBIN 13.5 GM/dL (10.7-15.3); MCH 28.4 pg (25.7-33.7); MCHC 32.5 g/dl (32.0-36.0); MEAN CELL VOLUME 87.4 fl (80-96); MEAN PLT VOLUME 12.4 fl (7.5-11.1); PLATELET COUNT 165 10^3/uL (134-434); RBC 4.75 M/mm3 (3.60-5.2); RDW 16.4 % (11.6-15.6); WHITE BLOOD COUNT 7.7 K/mm3 (4.0-10.0)
[2021-12-01] MEDS: ALPRAZolam 0.25 MG TABLET PO PRN (21:26)
[2021-12-02 08:40] LABS: BASO % 0.7 % (0-2.0); EOS % 1.7 % (0-4.5); HEMATOCRIT 37.9 % (32.4-45.2); HEMOGLOBIN 12.4 GM/dL (10.7-15.3); LYMPH % 24.8 % (8-40); MCH 28.4 pg (25.7-33.7); MCHC 32.8 g/dl (32.0-36.0); MEAN CELL VOLUME 86.4 fl (80-96); MEAN PLT VOLUME 12.5 fl (7.5-11.1); MONO % 6.5 % (3.8-10.2); NEUT % 66.3 % (42.8-82.8); PLATELET COUNT 138 10^3/uL (134-434); RBC 4.39 M/mm3 (3.60-5.2); RDW 15.8 % (11.6-15.6); WHITE BLOOD COUNT 6.8 K/mm3 (4.0-10.0)
[2021-12-02 08:53] LABS: ALBUMIN 3.4 g/dl (3.4-5.0); BLOOD UREA NITROGEN 18.2 mg/dL (7-18); CALCIUM 8.8 mg/dL (8.5-10.1)
[2021-12-02 08:55] LABS: MAGNESIUM 2.2 mg/dL (1.8-2.4)
[2021-12-02 08:57] LABS: CREATININE 0.8 mg/dL (0.55-1.3); PHOSPHOROUS 4.1 mg/dL (2.5-4.9)
[2021-12-02 08:59] LABS: BILIRUBIN,TOTAL 0.2 mg/dL (0.2-1); TOT PROT 7.5 g/dl (6.4-8.2)
[2021-12-02] MEDS: ASPIRIN 81 MG CHEWABLE TABLETS PO SCH (09:18)
[2021-12-02] MEDS: LISINOPRIL 20 MG TABLET PO SCH (09:18)
[2021-12-02] MEDS: NIFEdipine E.R 60 MG TABLET PO SCH (09:18)
[2021-12-02] MEDS: PANTOPRAZOLE 20 MG TABLET PO SCH (09:18)
[2021-12-02] MEDS: EPLERENONE 25 MG TABLET PO SCH ×2 (09:19→22:42)
[2021-12-02 11:07] LABS: RENIN ACTIVITY(PRA) 0.649 ng/mL/hr (0.167-5.380)
[2021-12-02] MEDS: ALPRAZolam 0.25 MG TABLET PO PRN ×2 (12:42→22:39)
[2021-12-02] MEDS ORDERED: NIFEdipine E.R. 30 MG TABLET PO ONE (14:45)
[2021-12-02] MEDS: ACETAMINOPHEN 325 MG TABLET (FP) PO PRN (22:38)
[2021-12-03 08:24] LABS: EOS % 1.8 % (0-4.5); HEMATOCRIT 36.6 % (32.4-45.2); HEMOGLOBIN 11.9 GM/dL (10.7-15.3); LYMPH % 29.9 % (8-40); MCH 28.5 pg (25.7-33.7); MCHC 32.5 g/dl (32.0-36.0); MEAN CELL VOLUME 87.7 fl (80-96); MEAN PLT VOLUME 12.7 fl (7.5-11.1); MONO % 7.3 % (3.8-10.2); PLATELET COUNT 142 10^3/uL (134-434); RBC 4.18 M/mm3 (3.60-5.2); RDW 16.1 % (11.6-15.6); WHITE BLOOD COUNT 7.1 K/mm3 (4.0-10.0)
[2021-12-03 09:12] LABS: BILIRUBIN,TOTAL 0.3 mg/dL (0.2-1)
[2021-12-03 09:13] LABS: TOT PROT 7.3 g/dl (6.4-8.2)
[2021-12-03 09:24] LABS: ALBUMIN 3.4 g/dl (3.4-5.0); CALCIUM 9.4 mg/dL (8.5-10.1); CREATININE 0.9 mg/dL (0.55-1.3); MAGNESIUM 2.1 mg/dL (1.8-2.4); PHOSPHOROUS 4.6 mg/dL (2.5-4.9)
[2021-12-03] MEDS ORDERED: NIFEdipine E.R. 90 MG TABLET PO SCH (10:00)
[2021-12-03] MEDS: PANTOPRAZOLE 20 MG TABLET PO SCH (10:02)
[2021-12-03] MEDS: ASPIRIN 81 MG CHEWABLE TABLETS PO SCH (10:02)
[2021-12-03] MEDS: LISINOPRIL 20 MG TABLET PO SCH (10:03)
[2021-12-03] MEDS: EPLERENONE 25 MG TABLET PO SCH (10:03)
[2021-12-03] MEDS ORDERED: NIFEdipine E.R 60 MG TABLET PO SCH (12:47)
[2021-12-03 13:12] VITALS: RESP 22
[2021-12-03 15:21] VITALS: PULSE 92; TEMP 98.2
[2021-12-03 15:22] VITALS: BP 158/106
== END 2021-12-03 18:53 | disposition home or self-care (01) | DRG 199 ==
LOC: JER 20:44 → JERBED 11-26 01:45 → J4W 11-26 19:13
PROVIDERS: ADMIT Internal Medicine Pulmonary Disease; ATTEND Internal Medicine
DX: I16.1 Hypertensive emergency (principal); G62.9 Polyneuropathy, unspecified; I24.8 Other forms of acute ischemic heart disease; I31.3 Pericardial effusion (noninflammatory); I10 Essential (primary) hypertension; E87.6 Hypokalemia; E26.01 Conn's syndrome; M79.7 Fibromyalgia; K21.9 Gastro-esophageal reflux disease without esophagitis; F32.A Depression, unspecified; K29.70 Gastritis, unspecified, without bleeding; E26.09 Other primary hyperaldosteronism
CPT/HCPCS: 36415; 70552-TC; 71045-TC-FY; 80048; 80053; 80061; 81003; 82024; 82088; 82533; 82570; 83735; 83880; 84100; 84146; 84244; 84443; 84484; 84585; 85025; 85027; 85610; 85651; 85730; 86140; 86431; 93005; 93010; 93306-TC; 93351; 99285-25; A9579; C9803-CS; J1644; J8540; U0003; U0005